=== PATIENT | female | born 1965 | race African-American/Black ===

== ENCOUNTER 2018-04-07 10:37 | Emergency (ER) | payer OTHER | END 2018-04-07 11:10 | disposition home or self-care (01) | LOC: MADERS 10:37 | DX: E11.65 Type 2 diabetes mellitus with hyperglycemia (principal); Z79.4 Long term (current) use of insulin; I10 Essential (primary) hypertension; E66.9 Obesity, unspecified; F17.210 Nicotine dependence, cigarettes, uncomplicated; Z79.899 Other long term (current) drug therapy | CPT/HCPCS: 36416; 99284 ==